=== PATIENT | female | born 1960 | race Caucasian/White ===

== ENCOUNTER 2020-11-23 22:51 | Emergency (ER) | payer OTHER ==
[~2020-11-23 22:51] MED LIST: ATIVAN1 MG PO; BACLOFEN 10MG T10 MG PO; BENTYL10 MG PO; CIPRO500 MG PO; CLEOCIN HCL300 MG PO; COLACE100 MG PO; CYANOCOBAL1000 MCG/1 IM; CYMBALTA60 MG PO; HYDROCODON-ACE1 EAC6 PO; HYDROCODONE/APA1 TAB PO; KEFLEX250 MG PO; LISINOPRIL5 MG PO; MELOXICAM15 MG PO; METRONIDAZOLE500 MG PO; NEURONTIN100 M1 PO; NORCO 10-325 T1 EACH PO; PREVACID30 MG PO; PYRIDIUM200 MG PO; TYLENOL500 MG PO; VICODIN 10/3251 EACH PO; VOLTAREN **OUT75 MG PO; VOLTAREN100 GM TOP; ZOCOR10 MG PO; ZOFRAN4 MG PO; ZOFRAN8 MG PO
[2020-11-23 23:34] LABS: BASOPHIL 0.5 % (0-2); EOSINOPHIL 0.7 % (0-5); HCT 39.9 % (37.0-47.0); MCH 31.2 pg (25.0-31.0); MCHC 32.6 g/dL (32.0-36.0); MCV 95.7 fL (78.0-100.0); MONOCYTE 7.1 % (0-12); MPV 10.5 fL (6.0-9.5); NEUTROPHIL 52.5 % (41-80); NRBC 0; PLT 177 K/uL (150-400); RBC 4.17 M/uL (4.20-5.40); RDW 11.8 % (11.5-14.0); WBC 5.9 K/uL (4.0-10.5)
[2020-11-23 23:44] LABS: ALBUMIN 3.7 g/dL (3.4-5.0); BILIRUBIN - TOTAL 0.6 mg/dL (0.2-1.0); BUN/CREAT RATIO (CALC) 16.4 RATIO; CREATININE 0.73 mg/dL (0.51-0.95); GLOBULIN (CALCULATION) 3.1 g/dL; POTASSIUM 3.7 mmol/L (3.5-5.1); TOTAL PROTEIN 6.8 g/dL (6.4-8.2)
[2020-11-23 23:47] LABS: BILIRUBIN NEGATIVE (NEGATIVE); BLOOD TRACE-INTACT Ery/uL (NEGATIVE); CLARITY CLEAR (CLEAR); COLOR YELLOW (YELLOW); GLUCOSE (U) NORMAL (NORMAL); LEUKOCYTES 1+ Leu/uL (NEGATIVE); NITRITE NEGATIVE (NEGATIVE); PROTEIN NEGATIVE (NEGATIVE); SPECIFIC GRAVITY 1.025 (1.001-1.030)
[2020-11-23 23:53] LABS: AMORPHOUS URATES CRYSTALS TRACE; BACTERIA TRACE; MUCOUS TRACE; SQUAMOUS EPITHELIAL CELLS RARE
[2020-11-24] MEDS ORDERED: BACTRIM DS TAB1 EACH PO (00:18)
[2020-12-17] MEDS ORDERED: LIDOCAINE 5% P1 EACH TOP (13:23)
[2021-02-14] MEDS ORDERED: HYDROCODON-ACE1 EAC6 PO (13:53)
== END 2020-11-24 00:30 | disposition home or self-care (01) ==
LOC: FER 22:51
PROVIDERS: Emergency Medicine
DX: N30.00 Acute cystitis without hematuria (principal); K59.00 Constipation, unspecified; I10 Essential (primary) hypertension; E11.9 Type 2 diabetes mellitus without complications; Z87.891 Personal history of nicotine dependence
CPT/HCPCS: 36415; 74022; 80053; 81001; 85025